=== PATIENT | female | born 1980 | race Caucasian/White ===

== ENCOUNTER 2017-05-22 17:21 | Observation (INO) ==
--- NOTE | 2017-05-22 18:19 | Emergency Department Note ---
Disposition Clinical Impression: Nausea and vomiting in adult Fever Qualifiers: Fever type: unspecified Qualified Code(s): R50.9 - Fever, unspecified Dyspnea Qualifiers: Dyspnea type: unspecified Qualified Code(s): R06.00 - Dyspnea, unspecified Disposition: Admitted As Inpatient Condition: Good Referrals: Bernabe Spencer MD [Primary Care Provider] - Forms: ED Satisfaction Letter Time of Disposition: 20:54 SOB HPI - General Chief Complaint: ED Shortness of Breath/Dyspnea Stated Complaint: Possible pneumonia Time Seen by Provider: 05/22/17 18:01 Source: patient Mode of arrival: ambulatory Limitations: no limitations Nursing Notes Reviewed: Yes Vital Signs Reviewed: Yes - History of Present Illness 36-year-old who comes in complaining of shortness of breath cough and when I walk in the room is having nausea vomiting. Patient is concerned that she may have pneumonia just does not feel well. Pt Subjective Complaint: shortness of breath, cough Onset (ago): Just [employer] Context: recent illness (Recent flu seem to get better now getting worse with cough and possible pneumonia.) Severity: moderate Consistency/Duration: constant Improves with: nothing Associated symptoms: Reports: fever, cough Treatment prior to arrival: none Cough Description: Involuntary Cough Frequency: Intermittent - Related Data Previous Rx's Medication Instructions Recorded Cyclobenzaprine HCl 10 mg PO Q8H #21 tablet 05/13/16 Ibuprofen [Motrin] 600 mg PO Q6HR #30 tab 05/13/16 Allergies Allergy/AdvReac Type Severity Reaction Status Date / Time atropine [From ] Allergy Unknown See Verified 05/22/17 17:31 Comments Hyoscyamine [From ] Allergy Unknown See Verified 05/22/17 17:31 Comments phenobarbital [From ] Allergy Unknown See Verified 05/22/17 17:31 Comments scopolamine [From ] Allergy Unknown See Verified 05/22/17 17:31 Comments All systems ED: reviewed and negative except as stated. Constitutional: Reports: fever. Denies: chills, weakness, weight change Eyes: Denies: eye pain, eye discharge, vision change ENT ED: Denies: ear pain, throat pain, dental pain, hearing loss, epistaxis, congestion, dysphagia Cardiovascular: Denies: chest pain, palpitations, dyspnea on exertion, edema, syncope Respiratory: Reports: cough, dyspnea, wheezes. Denies: hemoptysis, stridor Gastrointestinal: Denies: abdominal pain, nausea, vomiting, diarrhea, constipation, hematemesis, melena, hematochezia Genitourinary: Denies: dysuria, frequency, hematuria, discharge Musculoskeletal: Denies: back pain, neck pain, arthralgia, myalgia Integumentary: Denies: rash, abrasion, lesions Neurological: Denies: headache, weakness, numbness, paresthesias, confusion, abnormal gait, vertigo Psychiatric: Denies: anxiety, depression, suicidal thoughts, homicidal thoughts , auditory hallucinations, visual hallucinations Endocrine: Denies: fatigue Hematological/Lymphatic: Denies: easy bleeding, easy bruising Allergic/Immunologic: Denies: facial swelling, urticaria Past Medical History - Past Medical History Medical history: Reports: no medical history Psychiatric history: Reports: depression - Social History Smoking Status: Never smoker Smokeless Tobacco Status: No Alcohol use: Reports: none Drug use: Reports: none Physical Exam - General Limitations: no limitations General appearance: alert, in no apparent distress - Head Head exam: atraumatic, normocephalic, normal inspection - Eye Eye exam: Present: normal appearance, PERRL, EOMI - ENT ENT exam: normal exam, normal oropharynx, mucous membranes moist - Neck Neck exam: Present: normal inspection, full ROM, trachea midline - Chest Chest inspection: Present: normal inspection, symmetric chest wall rise - Respiratory Respiratory exam: Present: wheezes (Regional) - Cardiovascular Cardiovascular exam: Present: regular rate, normal rhythm, normal heart sounds - Abdominal Exam Abdominal exam: Present: soft, Non-Tender. Absent: tenderness, distention, guarding, rebound, rigidity - Extremities Exam Extremities exam: Present: normal inspection, full ROM. Absent: tenderness, pedal edema - Expanded Lower Extremity Exam Gait: observed and normal - Back Exam Back exam: Present: normal inspection - Neurological Exam Neurological exam: Present: alert, oriented X3 - Psychiatric Psychiatric exam: Present: normal affect, normal mood - Skin Skin exam: Present: warm, dry, intact, normal color Course - Reevaluation(s) Reevaluation #1: 36-year-old who comes in with a fever tachycardic and says that she is concerned she has pneumonia with some wheezing and also some cough. Patient is vomiting in the vomit bag when I walk into the room. Time: 20:51 - Consultations Consultation #1: Discussed with Dr. El, admit Time: 20:51 Vital Signs Temperature 103.0 F H 05/22/17 17:28 Pulse Rate 126 05/22/17 17:28 Respiratory Rate 24 05/22/17 17:28 Blood Pressure 123/79 05/22/17 17:28 O2 Sat by Pulse Oximetry 100 05/22/17 17:28 Temperature 101.1 F H 05/22/17 19:42 Pulse Rate 106 05/22/17 19:42 Respiratory Rate 16 05/22/17 20:05 Blood Pressure 136/110 05/22/17 19:42 O2 Sat by Pulse Oximetry 97 05/22/17 20:05 Oxygen Delivery Oxygen Delivery Room Air Shortness of Breath/Dyspnea - Lab Data Result diagrams: 05/22/17 18:25 05/22/17 18:25 Lab Results 05/22/17 05/22/17 05/22/17 Range/Units 18:25 18:25 18:25 WBC 3.2 L (4.3-11.1) K/mcL RBC 4.96 (3.82-4.97) M/mcL Hgb 13.3 (11.5-15.4) g/dL Hct 39.5 (35.3-44.9) % MCV 79.6 L (83.0-100.0) fL MCH 26.8 L (28.0-33.3) pg MCHC 33.7 (31.6-35.5) g/dL RDW 13.8 (11.5-14.5) % Plt Count 216 (140-400) K/mcL MPV 10.4 (9.4-12.4) fL Seg Neutrophils % 56.0 % Band Neutrophils % 4.0 (0-4) % Lymphocytes % 32.0 % Monocytes % 2.0 % Metamyelocytes % 2.0 H (0) % Myelocytes % 4.0 H (0) % Neutrophils # 1.9 (1.6-8.9) K/mcL Lymphocytes # 1.0 (0.6-4.6) K/mcL Monocytes # 0.1 (0.0-1.3) K/mcL Reactive Lymphocytes Present A (Not Present) Platelet Estimate Normal (Normal) Microcytosis Present A (Not Present) Sodium 134 L (136-145) mEq/L Potassium 3.8 (3.5-5.1) mEq/L Chloride 105 (98-107) mEq/L Carbon Dioxide 20 L (23-29) mEq/L BUN 16 (6-20) mg/dL Creatinine 0.88 (0.60-1.20) mg/dL Est GFR ( Amer) > 60 (> 60) Est GFR (Non-Af Amer) > 60 (> 60) BUN/Creatinine Ratio 18 (6-26) Glucose 99 (70-105) mg/dL Calculated Osmolality 279 L (280-300) Lactic Acid 1.1 (0.5-2.2) mmol/L Calcium 8.7 (8.6-10.3) mg/dL Total Bilirubin 0.9 (0.3-1.0) mg/dL Direct Bilirubin 0.5 H (0.0-0.2) mg/dL Indirect Bilirubin 0.4 (0.0-1.2) mg/dL AST 123 H (13-39) Units/L ALT 126 H (7-52) Units/L Alkaline Phosphatase 80 (34-104) Units/L Troponin I (< 0.04) ng/mL Serum Total Protein 7.9 (6.4-8.9) g/dL Albumin 3.7 (3.5-5.7) g/dL Globulin 4.2 H (2.4-3.5) g/dL Albumin/Globulin Ratio 0.9 L (1.1-2.2) Urine Color (Yellow) Urine Clarity (Clear) Urine pH (5.0-8.0) pH Units Ur Specific [place] (1.010-1.025) Urine Protein (Neg-Trace) mg/dL Urine Glucose (UA) (Normal) mg/dL Urine Ketones (Negative) mg/dL Urine Blood (Negative) Urine Nitrite (Negative) Urine Bilirubin (Negative) Urine Urobilinogen (Normal) mg/dL Ur Leukocyte Esterase (Negative) Urine Microscopic RBC (0-3) per hpf Urine Microscopic WBC (0-3) per hpf Ur Squamous Epith Cells (None-Few) per lpf Urine Bacteria (None-Few) per hpf Hyaline Casts (None-Few) per lpf Urine Yeast (None Seen) per hpf Ur Culture Indicated? (NO) 05/22/17 05/22/17 Range/Units 18:25 19:16 WBC (4.3-11.1) K/mcL RBC (3.82-4.97) M/mcL Hgb (11.5-15.4) g/dL Hct (35.3-44.9) % MCV (83.0-100.0) fL MCH (28.0-33.3) pg MCHC (31.6-35.5) g/dL RDW (11.5-14.5) % Plt Count (140-400) K/mcL MPV (9.4-12.4) fL Seg Neutrophils % % Band Neutrophils % (0-4) % Lymphocytes % % Monocytes % % Metamyelocytes % (0) % Myelocytes % (0) % Neutrophils # (1.6-8.9) K/mcL Lymphocytes # (0.6-4.6) K/mcL Monocytes # (0.0-1.3) K/mcL Reactive Lymphocytes (Not Present) Platelet Estimate (Normal) Microcytosis (Not Present) Sodium (136-145) mEq/L Potassium (3.5-5.1) mEq/L Chloride (98-107) mEq/L Carbon Dioxide (23-29) mEq/L BUN (6-20) mg/dL Creatinine (0.60-1.20) mg/dL Est GFR ( Amer) (> 60) Est GFR (Non-Af Amer) (> 60) BUN/Creatinine Ratio (6-26) Glucose (70-105) mg/dL Calculated Osmolality (280-300) Lactic Acid (0.5-2.2) mmol/L Calcium (8.6-10.3) mg/dL Total Bilirubin (0.3-1.0) mg/dL Direct Bilirubin (0.0-0.2) mg/dL Indirect Bilirubin (0.0-1.2) mg/dL AST (13-39) Units/L ALT (7-52) Units/L Alkaline Phosphatase (34-104) Units/L Troponin I < 0.03 (< 0.04) ng/mL Serum Total Protein (6.4-8.9) g/dL Albumin (3.5-5.7) g/dL Globulin (2.4-3.5) g/dL Albumin/Globulin Ratio (1.1-2.2) Urine Color Dark Yellow (Yellow) Urine Clarity Cloudy A (Clear) Urine pH 6.0 (5.0-8.0) pH Units Ur Specific [place] 1.025 (1.010-1.025) Urine Protein 100 H (Neg-Trace) mg/dL Urine Glucose (UA) Normal (Normal) mg/dL Urine Ketones 15 H (Negative) mg/dL Urine Blood Large H (Negative) Urine Nitrite Negative (Negative) Urine Bilirubin Small H (Negative) Urine Urobilinogen Normal (Normal) mg/dL Ur Leukocyte Esterase Trace H (Negative) Urine Microscopic RBC 0-3 (0-3) per hpf Urine Microscopic WBC 3-5 H (0-3) per hpf Ur Squamous Epith Cells Many H (None-Few) per lpf Urine Bacteria None Seen (None-Few) per hpf Hyaline Casts None Seen (None-Few) per lpf Urine Yeast Few H (None Seen) per hpf Ur Culture Indicated? NO. (NO)
[2017-05-22 18:36] LABS: Hematocrit 39.5 % (35.3-44.9); Hemoglobin 13.3 g/dL (11.5-15.4); Mean Corpuscular HGB Conc 33.7 g/dL (31.6-35.5); Mean Corpuscular Hemoglobin 26.8 pg (28.0-33.3); Mean Corpuscular Volume 79.6 fL (83.0-100.0); Mean Platelet Volume 10.4 fL (9.4-12.4); Platelet Count 216 K/mcL (140-400); Red Blood Count 4.96 M/mcL (3.82-4.97); Red Cell Distribution Width 13.8 % (11.5-14.5)
[2017-05-22] MEDS: 0.9 % Sodium Chloride 1,000 ML IVC SCH ×2 (18:39→20:11)
[2017-05-22 18:55] LABS: BUN/Creatinine Ratio 18 (6-26); Blood Urea Nitrogen 16 mg/dL (6-20); Calcium 8.7 mg/dL (8.6-10.3); Carbon Dioxide 20 mEq/L (23-29); Chloride 105 mEq/L (98-107); Glucose 99 mg/dL (70-105); Osmolality,Calculated 279 (280-300); Potassium 3.8 mEq/L (3.5-5.1); Sodium 134 mEq/L (136-145); eGFR For African Americans > 60 (> 60); eGFR For Non-African Americans > 60 (> 60)
[2017-05-22 19:03] LABS: Monocytes # 0.1 K/mcL (0.0-1.3); Neutrophils # 1.9 K/mcL (1.6-8.9); Platelet Estimate Normal (Normal); Reactive Lymphocytes Present (Not Present)
[2017-05-22 19:04] LABS: Microcytosis Present (Not Present)
[2017-05-22] MEDS ORDERED: Acetaminophen 325 MG TABLET PO ONE (19:21)
[2017-05-22 19:27] LABS: Bilirubin,Urine Small (Negative); Blood,Urine Large (Negative); Clarity,Urine Cloudy (Clear); Color,Urine Dark Yellow (Yellow); Glucose,Urine (UA) Normal (Normal); Ketones,Urine 15 mg/dL (Negative); Leukocyte Esterase,Urine Trace (Negative); Nitrite,Urine Negative (Negative); Protein,Urine 100 mg/dL (Neg-Trace); Specific Gravity,Urine 1.025 (1.010-1.025); Urobilinogen,Urine Normal (Normal)
[2017-05-22 19:30] LABS: Bacteria,Urine None Seen per hpf (None-Few); Hyaline Casts,Urine None Seen per lpf (None-Few); RBC,Urine 0-3 per hpf (0-3); Squamous Epithelial Cell,Urine Many per lpf (None-Few)
[2017-05-22 19:43] LABS: Alanine Aminotransferase 126 Units/L (7-52); Albumin 3.7 g/dL (3.5-5.7); Albumin/Globulin Ratio 0.9 (1.1-2.2); Alkaline Phosphatase 80 Units/L (34-104); Aspartate Amino Transferase 123 Units/L (13-39); Bilirubin,Direct 0.5 mg/dL (0.0-0.2); Bilirubin,Indirect 0.4 mg/dL (0.0-1.2); Bilirubin,Total 0.9 mg/dL (0.3-1.0); Globulin 4.2 g/dL (2.4-3.5); Total Protein 7.9 g/dL (6.4-8.9)
[2017-05-22 19:47] LABS: Yeast,Urine Few per hpf (None Seen)
[2017-05-22] MEDS ORDERED: Albuterol 2.5 MG/3 ML NEBULIZER IH ONE (19:50)
[2017-05-22] MEDS ORDERED: Naloxone 0.4 MG/ML INJ IVP PRN (22:52)
--- NOTE | 2017-05-22 23:42 | Internal Med History&Physical ---
<Primo Kendall - Last Filed: 05/22/17 23:28> Date of Encounter: 05/22/17 Time of Encounter: 23:28 Assessment and Plan (1) Fever Current visit: Yes Status: Acute Fever, presumptive pneumonia Patient had a recent influenza, fevers, cough, chills with shortness of breath Currently leukopenic, likely viral suppression. Mildly tachycardic, likely secondary to fever. I do not suspect sepsis at this time Although chest x-ray and clinical exam do not currently show pneumonia is possible that the patient is volume depleted I will start the patient on maintenance fluids, treat for community-acquired pneumonia Start Azithromycin, Rocephin Avoid Tylenol due to transaminitis, use ibuprofen for fevers Qualifiers: Fever type: due to other condition Qualified Code(s): R50.81 - Fever presenting with conditions classified elsewhere (2) Nausea and vomiting in adult Current visit: Yes Status: Acute Patient has had N/V She says that she has been unable to keep fluids or food down I will start the patient on 100ml/hr maintenance fluids, and provide Zofran for nausea Urine cultures pending (3) Dyspnea Current visit: Yes Status: Acute Patient has presumptive pneumonia Currently she is saturating well on room air and appears comfortable She does not become conversationally dyspneic Will continue to watch for signs of dyspnea and treat according to reevaluation as needed Qualifiers: Dyspnea type: shortness of breath Qualified Code(s): R06.02 - Shortness of breath; R06.00 - Dyspnea, unspecified; R06.01 - Orthopnea (4) Transaminitis Current visit: Yes Status: Acute Patient has elevated ALT/AST Not complaining of any abdominal pain I will recheck LFTs in the AM, and consider Gallbladder US in AM if they remain elevated Avoid Tylenol for pain/fever control (5) DVT prophylaxis Current visit: Yes Status: Acute Patient is able to ambulate, and should do so every 3-4 hours Internal Medicine - H&P: HPI Chief complaint: Fever and Chills Admitted From: Emergency Dept Plans for Post Hospital Care: Home History of present illness: Ms. Miller is a 36 year old female with history of recent influenza s/p treatment with tamiflu. She was seen and treated for presumptive influenza on 05/10/17 after developing flu-like symptoms because her kids also had the flu. After the course of tamiflu was finished, the patient reported feeling significantly better aside from a laryngitis which did not resolve, however she began to develop fever and chills on this past sunday. She said that they started insidiously, and were not immediately associated with any other symptoms. Starting yesterday, she began to develop some dyspnea and productive cough, however the cough had remained relatively constant since she had the flu. She says that the fevers will break with tylenol, however she develops chills when she takes tylenol. On Sunday, she also began to develop nausea and vomiting which were relatively constant. She says that she does not have a constant feeling of nausea, however develops it any time she eats or drinks. She has not been able to hold anything down. She tried to take a decongestant, however she could not hold it down. She also tried to take small intakes of fluids at a time, but that was not helpful. She is not having any abdominal pain associated with this. She has no myalgias, arthralgias. She has no other acute complaints. Past Med Surg Social Fam HX - Past Medical History Medical history: no medical history Psychiatric history: depression - Past Surgical History Surgical History: - Social History Smoking Status: Never smoker Smokeless Tobacco Status: No Alcohol use: none Drug use: none - Family History Father Living Status: Age at : 70 Cause of : "lung/heart issues" Hx Family Cardiac Disorders: Yes ([place], brain aneurysm) Hx Family Respiratory Disorders: Yes (Emphysema) Hx Family Endocrine Disorder: Yes (DM) Internal Medicine - H&P: Meds Acetaminophen [Tylenol] 500 mg PO Q6HR PRN 05/22/17 [History] Ibuprofen [Motrin] 400 mg PO Q6HR PRN 05/22/17 [History] 3 Allergy/AdvReac Type Severity Reaction Status Date / Time atropine [From ] Allergy Unknown See Verified 05/22/17 17:31 Comments Hyoscyamine [From ] Allergy Unknown See Verified 05/22/17 17:31 Comments phenobarbital [From ] Allergy Unknown See Verified 05/22/17 17:31 Comments scopolamine [From ] Allergy Unknown See Verified 05/22/17 17:31 Comments Review of systems: - Constitutional: Admits to fevers, chills and fatigue. Denies weight loss - Head/Neck: Denies MATT, neck stiffness - EENT: Denies vision changes/blurriness, tinnitus, auditory changes, Admits to congestion + Laryngitis - CVS: Denies chest pain, palpitations, PÉREZ, orthopnea, edema, PND, - Pulm: Admits to SOB, cough, sputum. Denies hematemesis, wheezing - GI: Admits to nausea and vomiting. Denies abdominal pain, anorexia, diarrhea, constipation, melena - : Denies dysuria, increased frequency, urgency, hematuria, - Heme: Denies ease of bleeding or bruising - MSK: Denies joint pain, limited ROM, arthralgias - Skin: Denies rashes, color changes - Neuro: Admits to intermittent headache. Denies paresthesias, focal deficits, ataxia, - Constitutional Vitals: Temp Pulse Resp BP Pulse Ox 98.1 F 96 18 115/77 96 05/22/17 22:00 05/22/17 22:00 05/22/17 22:00 05/22/17 22:00 05/22/17 22:00 Exam: Gen.: Vitals noted. No acute distress. AAOx3. Obese woman. Speaks in whisper due to laryngitis HEENT: Pronounced amblyopia on exam that is chronic, oropharynx clear, Normocephalic, atraumatic Neck: Supple. No adenopathy. Cardiac: RRR, no murmur, +S1/S2 Pulmonary: CTA bilaterally, no wheezes, rales or rhonchi, equal chest expansion Abdomen: soft, nontender, BS noted, no guarding Back: Nontender throughout. Extremities: no BLE edema, nontender calf, no cyanosis or clubbing Neuro: A&Ox3, moves all extremities, no focal deficits Psych: Appropriate mood and behavior Internal Med - H&P Results - Labs CBC & Chem 7: 05/22/17 18:25 05/22/17 18:25 <Kevin Trejo - Last Filed: 05/23/17 05:34> Date of Encounter: 05/23/17 Time of Encounter: 04:30 - Constitutional Constitutional: chills, fever(s), malaise, no night sweats - EENT Ears: no ear pain, no tinnitus Nose, mouth and throat: nasal congestion, nasal discharge, sinus pressure, sore throat - Cardiovascular Cardiovascular ROS IM: no chest pain, no palpitations - Respiratory Respiratory: cough, dyspnea, chest congestion, change in phlegm color, pain with cough - Gastrointestinal Gastrointestinal: nausea, vomiting, no abdominal pain, no diarrhea, no hematemesis, no hematochezia, no melena - Genitourinary Genitourinary: no dysuria, no flank pain - Musculoskeletal Musculoskeletal ROS IM: arthralgias, muscle cramps, muscle weakness, myalgias - Integumentary Integumentary IM: no rash, no jaundice - Neurological Neurological ROS: no dizziness, no focal weakness, no frequent falls - Psychiatric Psychiatric: no anxiety, no depression - Endocrine Endocrine IM: no polydipsia, no polyuria - Hematologic/Lymphatic Hematologic/Lymphatic: no easy bruising, no lymphadenopathy - Allergic/Immunologic Allergic/Immunologic: GI upset with certain foods, no wheezing - Constitutional Vitals: Temp Pulse Resp BP Pulse Ox 99.4 F 86 20 111/75 100 05/23/17 03:08 05/23/17 03:08 05/23/17 03:08 05/23/17 03:08 05/23/17 03:08 General appearance: Present: cooperative, pleasant Exam: Ill appearing but non-toxic - Head Head exam: Present: normal inspection - Eye Eye exam: Absent: scleral icterus Additional comments: amblyopia noted - ENT ENT exam: Present: mucous membranes dry, normal exam, normal external ear exam Additional comments: palpable sinus tenderness over maxillary and frontal sinuses - Neck Neck exam general surgery: Present: full ROM, supple. Absent: lymphadenopathy, tenderness, nuchal rigidity - Respiratory Respiratory exam: Present: prolonged expiratory phase, respiratory distress ( mild -- with coughing), rhonchi, wheezes (rare ). Absent: chest wall tenderness , rales - Cardiovascular Cardiovascular exam: Present: RRR, +S1, +S2. Absent: diastolic murmur, systolic murmur - GI/Abdominal GI/Abdominal exam: Present: normal bowel sounds, soft. Absent: hepatomegaly, splenomegaly, tenderness - Extremities Exam Extremities exam: Present: full ROM, normal capillary refill, warm, radial pulses palpable and symmetrical. Absent: calf tenderness, joint swelling - Back Exam Back exam: Absent: CVA tenderness (L), CVA tenderness (R) - Neurological Exam Neurological exam: Present: alert, CN II-XII intact, oriented X3, no focal deficits - Psychiatric Psychiatric exam: Present: normal affect, normal mood - Skin Skin exam: Present: dry, warm. Absent: rash Internal Med - H&P Results - Labs CBC & Chem 7: 05/22/17 18:25 05/22/17 18:25 - Diagnostic Studies Chest x-ray Status: image reviewed by me (negative) - Attending Attestation I discussed the patient [place], PMH, ROS, lab data, and exam findings with Dr. Spring. I then saw and examined patient indpendently as well. Patient is still recovering from recent influenza, and she now present with reoccurrence of fevers, worsening, cough, SOB, and generalized malaise. Although her CXR is negative for pneumonia, I have a high index of suspicion for an evolving pneumonia based upon her presenting history and recent Flu. Therefore, we will treat her for suspected pneumonia and support her clinically with IVF, aerosols , oxygen if necessary, and anti-emetics PRN. Other than my comments above and noted exam findings, I agree with Dr. Spring's assessment and plan.
[2017-05-23] MEDS: 0.9 % Sodium Chloride 1,000 ML IVC SCH ×5 (00:53→17:24)
[2017-05-23] MEDS: Ondansetron 4 MG/2 ML VIAL IVP SCH ×3 (00:59→11:57)
[2017-05-23] MEDS: Azithromycin 500 MG in D5% in Water 250 ML IVPB SCH (01:24)
[2017-05-23] MEDS: cefTRIAXone 1,000 MG in Water for inj. (sterile) 10 ML IVP SCH (01:24)
[2017-05-23] MEDS ORDERED: *HR* Promethazine 25 MG/ML VIAL IVP PRN (02:47)
[2017-05-23] MEDS: *HR* Heparin 5,000 UNIT/ML VIAL SQ SCH ×2 (06:13→17:24)
[2017-05-23 07:18] LABS: Hematocrit 34.3 % (35.3-44.9); Mean Corpuscular HGB Conc 32.1 g/dL (31.6-35.5); Mean Corpuscular Hemoglobin 26.1 pg (28.0-33.3); Mean Corpuscular Volume 81.5 fL (83.0-100.0); Mean Platelet Volume 10.8 fL (9.4-12.4); Platelet Count 189 K/mcL (140-400); Red Blood Count 4.21 M/mcL (3.82-4.97); Red Cell Distribution Width 14.2 % (11.5-14.5)
[2017-05-23 07:39] LABS: Alanine Aminotransferase 112 Units/L (7-52); Albumin/Globulin Ratio 0.9 (1.1-2.2); Alkaline Phosphatase 71 Units/L (34-104); Aspartate Amino Transferase 123 Units/L (13-39); BUN/Creatinine Ratio 18 (6-26); Bilirubin,Total 0.7 mg/dL (0.3-1.0); Blood Urea Nitrogen 14 mg/dL (6-20); Calcium 7.7 mg/dL (8.6-10.3); Carbon Dioxide 22 mEq/L (23-29); Chloride 107 mEq/L (98-107); Globulin 3.4 g/dL (2.4-3.5); Glucose 86 mg/dL (70-105); Osmolality,Calculated 282 (280-300); Potassium 3.7 mEq/L (3.5-5.1); Sodium 136 mEq/L (136-145); Total Protein 6.4 g/dL (6.4-8.9); eGFR For African Americans > 60 (> 60); eGFR For Non-African Americans > 60 (> 60)
[2017-05-23 08:02] LABS: Eosinophils # 0.1 K/mcL (0.0-0.6); Lymphocytes # 0.6 K/mcL (0.6-4.6); Monocytes # 0.2 K/mcL (0.0-1.3); Neutrophils # 2.4 K/mcL (1.6-8.9)
[2017-05-23 08:03] LABS: Platelet Estimate Normal (Normal)
--- NOTE | 2017-05-23 12:20 | Electrocardiograph Report ---
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
[2017-05-23] MEDS: Ibuprofen 600 MG TABLET PO PRN (14:51)
--- NOTE | 2017-05-23 16:01 | Internal Med Progress Note ---
Date of Encounter: 05/23/17 Time of Encounter: 09:05 - Assessment and plan (1) Fever Current Visit: Yes Status: Acute Assessment and plan: Fever on arrival. None since. She being treated for presumptive pneumonia, reports recent history of influenza , multiple sick contacts at home with children with influenza, fevers, cough, chills, shortness of breath. She has no leukocytosis, is leukopenic most likely due to viral suppression. Patient was mildly tachycardic on arrival, this is resolved as well. Chest x-ray was negative. She was mildly dehydrated on admission and was started on maintenance fluids and treated for CPAP. Continue Zithromax and Rocephin IV fluid hydration Albuterol nebulizers. Qualifiers: Fever type: due to other condition Qualified Code(s): R50.81 - Fever presenting with conditions classified elsewhere (2) Dyspnea Current Visit: Yes Status: Acute Assessment and plan: Plan as above. Qualifiers: Dyspnea type: shortness of breath Qualified Code(s): R06.02 - Shortness of breath; R06.00 - Dyspnea, unspecified; R06.01 - Orthopnea (3) Nausea and vomiting in adult Current Visit: Yes Status: Acute Assessment and plan: Patient reports nausea and vomiting and has been unable to keep food or fluids down. This morning she reports significant improvement in nausea, vomiting. She was able to eat almost 100% of her breakfast tray, as well as donuts that were brought from home by her family. Continue IV fluid hydration Anti-emetics as needed Monitor labs and fluid balance. (4) DVT prophylaxis Current Visit: Yes Status: Acute Assessment and plan: Subcutaneous heparin. (5) Transaminitis Current Visit: Yes Status: Acute Assessment and plan: Patient with elevated transaminases, unclear etiology at this time. Patient denies any abdominal pain, abdomen is soft and nontender to palpation. Gallbladder ultrasound is ordered and pending. Monitor for results. Avoid Tylenol for pain/fever control. - Time Spent With Patient less than 15 minutes - Subjective Interval history: Patient was seen and evaluated at bedside this morning at 9:05 AM. Patient's 2 sons and were in the room. Patient reports improved nausea and was actually able to eat almost 100% what was on her breakfast tray, as well as donuts that her brought from home. Patient states that she did not sleep well, I discussed changing her labs to 6 AM and changing vital signs once his shifts that she can rest. She denies any abdominal pain, headache, shortness of breath, chest pain, dizziness or headache. - Constitutional Vitals: Temp Pulse Resp BP Pulse Ox 99.6 F 95 18 156/84 95 05/23/17 07:28 05/23/17 07:28 05/23/17 07:28 05/23/17 07:28 05/23/17 07:50 General appearance: Present: cooperative, morbidly obese, pleasant, no acute distress, answers questions appropriately - Head Head exam: Present: atraumatic, normal inspection, normocephalic - Eye Eye exam: Present: normal appearance, conjuntiva pink, sclera anicteric - Neck Neck exam general surgery: Present: supple, trachea midline. Absent: lymphadenopathy, tenderness - Respiratory Respiratory exam: Present: CTAB. Absent: accessory muscle use, chest wall tenderness, rales, respiratory distress, rhonchi, wheezes - Cardiovascular Cardiovascular exam: Present: RRR, +S1, +S2. Absent: diastolic murmur, gallop, rubs, systolic murmur - GI/Abdominal GI/Abdominal exam: Present: normal bowel sounds, soft. Absent: distended, hepatomegaly, tenderness - Extremities Exam Extremities exam: Present: normal capillary refill, normal inspection, warm, radial pulses palpable and symmetrical. Absent: calf tenderness, cyanotic, pedal edema, tenderness - Neurological Exam Neurological exam: Present: alert, oriented X3, no focal deficits. Absent: facial droop, speech deficit - Skin Skin exam: Present: dry, intact, normal color, warm. Absent: rash Internal Medicine: Result - Labs CBC & Chem 7: 05/23/17 06:11 05/23/17 06:11 Labs: Short CBC 05/23/17 Range/Units 06:11 WBC 3.2 L (4.3-11.1) K/mcL Hgb 11.0 L D (11.5-15.4) g/dL Hct 34.3 L (35.3-44.9) % Plt Count 189 (140-400) K/mcL Neutrophils # 2.4 (1.6-8.9) K/mcL BMP 05/23/17 06:11 Sodium 136 Potassium 3.7 Chloride 107 Carbon Dioxide 22 L BUN 14 Creatinine 0.78 Glucose 86 Calcium 7.7 L Liver Function 05/23/17 Range/Units 06:11 Total Bilirubin 0.7 (0.3-1.0) mg/dL AST 123 H (13-39) Units/L ALT 112 H (7-52) Units/L Alkaline Phosphatase 71 (34-104) Units/L Albumin 3.0 L (3.5-5.7) g/dL Consult Discharge Plan - Plan Referrals: Bernabe Spencer MD [Primary Care Provider] - 06/06/17 9:30 am
[2017-05-23] MEDS ORDERED: Ondansetron 4 MG/2 ML VIAL IVP PRN (16:33)
[2017-05-24] MEDS: cefTRIAXone 1,000 MG in Water for inj. (sterile) 10 ML IVP SCH ×2 (00:15→23:50)
[2017-05-24] MEDS: Azithromycin 500 MG in D5% in Water 250 ML IVPB SCH ×2 (00:22→23:51)
[2017-05-24] MEDS: *HR* Heparin 5,000 UNIT/ML VIAL SQ SCH ×2 (05:09→16:50)
[2017-05-24 05:20] LABS: Basophils % 0.4 %; Eosinophils # 0.1 K/mcL (0.0-0.6); Eosinophils % 1.7 %; Hematocrit 34.7 % (35.3-44.9); Hemoglobin 11.2 g/dL (11.5-15.4); Immature Granulocytes % 0.6 % (0-4); Lymphocytes # 1.3 K/mcL (0.6-4.6); Lymphocytes % 27.9 %; Mean Corpuscular HGB Conc 32.3 g/dL (31.6-35.5); Mean Corpuscular Volume 83.6 fL (83.0-100.0); Mean Platelet Volume 10.8 fL (9.4-12.4); Monocytes # 0.3 K/mcL (0.0-1.3); Monocytes % 7.1 %; Neutrophils # 2.9 K/mcL (1.6-8.9); Platelet Count 168 K/mcL (140-400); Red Blood Count 4.15 M/mcL (3.82-4.97); Red Cell Distribution Width 14.5 % (11.5-14.5); Segmented Neutrophils % 62.3 %
[2017-05-24 05:28] LABS: Hemoglobin A1C 5.4 %
[2017-05-24 05:43] LABS: Alanine Aminotransferase 217 Units/L (7-52); Aspartate Amino Transferase 273 Units/L (13-39); BUN/Creatinine Ratio 16 (6-26); Blood Urea Nitrogen 12 mg/dL (6-20); Calcium 7.9 mg/dL (8.6-10.3); Carbon Dioxide 23 mEq/L (23-29); Chloride 108 mEq/L (98-107); Glucose 87 mg/dL (70-105); Osmolality,Calculated 283 (280-300); Potassium 4.1 mEq/L (3.5-5.1); Sodium 137 mEq/L (136-145); eGFR For African Americans > 60 (> 60); eGFR For Non-African Americans > 60 (> 60)
[2017-05-24 06:02] LABS: Platelet Estimate Normal (Normal); Reactive Lymphocytes Present (Not Present)
[2017-05-24] MEDS: 0.9 % Sodium Chloride 1,000 ML IVC SCH ×2 (07:24→16:41)
[2017-05-24] MEDS: Ibuprofen 600 MG TABLET PO PRN (12:16)
--- NOTE | 2017-05-24 14:15 | Internal Med Progress Note ---
Date of Encounter: 05/24/17 Time of Encounter: 10:55 - Assessment and plan (1) Fever Current Visit: Yes Status: Resolved Assessment and plan: Fever on arrival. Resolved She being treated for presumptive pneumonia, reports recent history of influenza , multiple sick contacts at home with children with influenza, fevers, cough, chills, shortness of breath. She has no leukocytosis. Patient was mildly tachycardic on arrival, this is resolved as well. Chest x-ray was negative. She was mildly dehydrated on admission and was started on maintenance fluids and treated for CAP. Continue Zithromax and Rocephin IV fluid hydration Albuterol nebulizers. Qualifiers: Fever type: due to other condition Qualified Code(s): R50.81 - Fever presenting with conditions classified elsewhere (2) Dyspnea Current Visit: Yes Status: Acute Assessment and plan: Plan as above. Qualifiers: Dyspnea type: shortness of breath Qualified Code(s): R06.02 - Shortness of breath; R06.00 - Dyspnea, unspecified; R06.01 - Orthopnea (3) Nausea and vomiting in adult Current Visit: Yes Status: Resolved Assessment and plan: Patient reports nausea and vomiting and was unable to keep food or fluids down. Resolved. Patient denies any nausea or vomiting. Continue IV fluid hydration Anti-emetics as needed Monitor labs and fluid balance. (4) DVT prophylaxis Current Visit: Yes Status: Acute Assessment and plan: Subcutaneous heparin patient is also ambulatory in and out of the room.. (5) Transaminitis Current Visit: Yes Status: Acute Assessment and plan: Patient with elevated transaminases, cause could be multifactorial including recent viral illness, as well as increased use of acetaminophen in the preceding 10 days. Patient denies any abdominal pain, abdomen is soft and nontender to palpation. Gallbladder ultrasound showed gallbladder wall polyps, no cholecystitis, moderate fatty infiltration of the liver, no other significant abnormality. Avoid Tylenol for pain/fever control. I did speak with GI physician who recommended monitoring overnight and consultation with group if labs continue to trend up. Hepatitis labs pending. - Time Spent With Patient less than 15 minutes - Subjective Interval history: Patient was seen and evaluated at bedside this morning at 1055 AM. She denies any abdominal pain, headache, shortness of breath, chest pain, dizziness or headache. Patient reports resolved nausea and vomiting. She states that she has been taking a lot of Tylenol, Motrin, as well as Tamiflu, as well as highly a virus. She denies any abdominal pain. - Constitutional Vitals: Temp Pulse Resp BP Pulse Ox 98.4 F 80 16 112/62 96 05/24/17 11:05 05/24/17 11:05 05/24/17 11:05 05/24/17 11:05 05/24/17 11:05 General appearance: Present: cooperative, A&O X 3, morbidly obese, pleasant, no acute distress, answers questions appropriately - Head Head exam: Present: atraumatic, normal inspection, normocephalic - Eye Eye exam: Present: normal appearance, conjuntiva pink, sclera anicteric - Neck Neck exam general surgery: Present: supple, trachea midline. Absent: lymphadenopathy, tenderness - Respiratory Respiratory exam: Present: CTAB. Absent: accessory muscle use, chest wall tenderness, decreased breath sounds, rales, respiratory distress, rhonchi, wheezes - Cardiovascular Cardiovascular exam: Present: RRR, +S1, +S2. Absent: diastolic murmur, gallop, rubs, systolic murmur - GI/Abdominal GI/Abdominal exam: Present: normal bowel sounds, soft, no peritoneal signs. Absent: distended, hepatomegaly, tenderness Additional comments: Difficult to assess hepatomegaly due to old body habitus - Extremities Exam Extremities exam: Present: normal capillary refill, normal inspection, warm, radial pulses palpable and symmetrical. Absent: calf tenderness, cyanotic, pedal edema, tenderness - Neurological Exam Neurological exam: Present: alert, CN II-XII intact, oriented X3, no focal deficits. Absent: facial droop, speech deficit - Skin Skin exam: Present: dry, intact, normal color, warm. Absent: rash Internal Medicine: Result - Labs CBC & Chem 7: 05/24/17 04:50 05/24/17 04:50 Labs: Short CBC 05/24/17 Range/Units 04:50 WBC 4.6 (4.3-11.1) K/mcL Hgb 11.2 L (11.5-15.4) g/dL Hct 34.7 L (35.3-44.9) % Plt Count 168 (140-400) K/mcL Neutrophils # 2.9 (1.6-8.9) K/mcL BMP 05/24/17 04:50 Sodium 137 Potassium 4.1 Chloride 108 H Carbon Dioxide 23 BUN 12 Creatinine 0.73 Glucose 87 Calcium 7.9 L Liver Function 05/24/17 Range/Units 04:50 AST 273 H (13-39) Units/L ALT 217 H (7-52) Units/L - Impressions Impressions Gallbladder Ultrasound 05/23/17 16:00 IMPRESSION: Gallbladder wall polyps demonstrated. No sonographic finding of acute cholecystitis. Moderate fatty infiltration of the liver. No other significant abnormality. D/ / Thanh Baez MD / Thanh Baez MD Interpreting Provider: Thanh Baez MD Consult Discharge Plan - Plan Referrals: Bernabe Spencer MD [Primary Care Provider] - 06/06/17 9:30 am
[2017-05-25 02:20] LABS: Hepatitis A Antibody IgM Nonreactive (Nonreactive); Hepatitis B Core IgM Nonreactive (Nonreactive); Hepatitis B Surface Antigen Nonreactive (Nonreactive); Hepatitis C Virus Antibody Nonreactive (Nonreactive)
[2017-05-25] MEDS: 0.9 % Sodium Chloride 1,000 ML IVC SCH (04:53)
[2017-05-25] MEDS: *HR* Heparin 5,000 UNIT/ML VIAL SQ SCH (06:25)
[2017-05-25 07:05] LABS: Alanine Aminotransferase 156 Units/L (7-52); Aspartate Amino Transferase 125 Units/L (13-39); BUN/Creatinine Ratio 17 (6-26); Blood Urea Nitrogen 11 mg/dL (6-20); Calcium 7.9 mg/dL (8.6-10.3); Carbon Dioxide 24 mEq/L (23-29); Chloride 108 mEq/L (98-107); Glucose 89 mg/dL (70-105); Osmolality,Calculated 285 (280-300); Potassium 3.5 mEq/L (3.5-5.1); Sodium 138 mEq/L (136-145); eGFR For African Americans > 60 (> 60); eGFR For Non-African Americans > 60 (> 60)
[2017-05-25 11:36] VITALS: BP 132/90
--- NOTE | 2017-05-25 12:29 | Discharge Summary ---
Date of Encounter: 05/25/17 Time of Encounter: 11:05 - Discharge Diagnosis (1) Fever Priority: Primary Status: Resolved Comments: Fever on arrival. Resolved She being treated for presumptive pneumonia, reports recent history of influenza , multiple sick contacts at home with children with influenza, fevers, cough, chills, shortness of breath. She has no leukocytosis. Patient was mildly tachycardic on arrival, this is resolved as well. Chest x-ray was negative. Continue Zithromax and Rocephin. Pt will be sent home with remainder of Zithromax prescription. Qualifiers: Fever type: due to other condition Qualified Code(s): R50.81 - Fever presenting with conditions classified elsewhere (2) Dyspnea Priority: Secondary Status: Acute Comments: Plan as above. Resolved. Pt does not need 02 and is ambulatory without difficulty. No PÉREZ or SOB at rest. Qualifiers: Dyspnea type: shortness of breath Qualified Code(s): R06.02 - Shortness of breath; R06.00 - Dyspnea, unspecified; R06.01 - Orthopnea (3) Nausea and vomiting in adult Priority: Secondary Status: Resolved Comments: Resolved. (4) DVT prophylaxis Priority: Secondary Status: Acute Comments: Pt has been ambulatory, SQ heparin BID. (5) Transaminitis Priority: Secondary Status: Acute Comments: Patient with elevated transaminases, most likely recent viral illness. Patient denies any abdominal pain, abdomen is soft and nontender to palpation. Gallbladder ultrasound revealed GB wall polyps, moderate fatty infiltration of the liver, no finding of acute cholecystitis, no significant abnormality. Hepatitis profile negative. Avoid Tylenol for pain/fever control. Pt was given IVF hydration and levels have started to trend down. Pt will need to follow up with PCP for continued monitoring. - Discharge Medications Prescriptions: Azithromycin [Zithromax] 250 mg PO DAILY #4 tablet Home Medications: Ibuprofen [Motrin] 400 mg PO Q6HR PRN 05/22/17 [History] Azithromycin [Zithromax] 250 mg PO DAILY #4 tablet 05/25/17 [Rx] Allergies/Adverse Reactions: 3 Allergy/AdvReac Type Severity Reaction Status Date / Time atropine [From ] Allergy Unknown See Verified 05/22/17 17:31 Comments Hyoscyamine [From ] Allergy Unknown See Verified 01/16/18 17:31 Comments phenobarbital [From ] Allergy Unknown See Verified 05/22/17 17:31 Comments scopolamine [From ] Allergy Unknown See Verified 05/22/17 17:31 Comments Procedures/tests Complete & Pending: Procedures Performed prior 72 hours Category Date Time Status US gall bladder [US] Routine Exams 05/23/17 16:00 Completed Date of admission: 05/22/17 21:07 Primary care physician: Bernabe Spencer MD Discharging clinician: Dariela Hendricks Anticipated date of discharge: 05/25/17 - Patient Status Disposition: Home, Self-Care Condition: Good Functional capacity at discharge: independent ambulation Overall status at discharge: patient is progressing back to baseline - Discharge Instructions Follow Up With: Bernabe Spencer MD [Primary Care Provider] - 06/06/17 9:30 am Additional Instructions: Please follow up with your PCP in the next 7-10 days Try to avoid Tylenol Drink plenty of fluids and rest Return to the ER as needed for any other problems or concerns Finish your antibiotic Return to your normal diet and routine as tolerated. - Diet and Activity Activity: increase activity as tolerated Diet: advance to your usual diet Hospital course: Ms. Miller is a 36 year old female presented to the ED with c/o n/v, viral illness after recent flu. Pt was taking large doses of tylenol, as well as taking Tamiflu and had viral illness with transaminase elevation. Pt was given IVF and GB US that was negative. AFter IVF and monitoring, transaminases are normalizing. Pt will need to follow up with PCP. Vitals stable, labs stable, pt is ready for discharge. - Time Spent with Patient Total time spent providing and/or coordinating discharge services: Less than 30 minutes - Constitutional Vitals: Temp Pulse Resp BP Pulse Ox 98.4 F 79 17 132/90 95 05/25/17 11:35 05/25/17 11:35 05/25/17 11:35 05/25/17 11:35 05/25/17 11:35 General appearance: Present: cooperative, A&O X 3, morbidly obese, pleasant, no acute distress, answers questions appropriately - Head Head exam: Present: atraumatic, normal inspection, normocephalic - Eye Eye exam: Present: normal appearance, conjuntiva pink, sclera anicteric - Neck Neck exam general surgery: Present: supple, trachea midline. Absent: lymphadenopathy, tenderness - Respiratory Respiratory exam: Present: CTAB. Absent: accessory muscle use, rales, rhonchi, wheezes - Cardiovascular Cardiovascular exam: Present: RRR, +S1, +S2. Absent: diastolic murmur, gallop, rubs, systolic murmur - GI/Abdominal GI/Abdominal exam: Present: normal bowel sounds, soft. Absent: distended, hepatomegaly, tenderness - Extremities Exam Extremities exam: Present: normal capillary refill, warm, radial pulses palpable and symmetrical. Absent: calf tenderness, cyanotic, pedal edema - Neurological Exam Neurological exam: Present: alert, oriented X3, no focal deficits. Absent: facial droop, speech deficit - Skin Skin exam: Present: dry, intact, warm. Absent: rash
== END 2017-05-25 13:31 | disposition home or self-care (01) ==
LOC: 3BNU 17:21 → EMEROO 17:21 → 3BNU 22:02
PROVIDERS: ADMIT Internal Medicine; ATTEND Registered Nurse